=== PATIENT | male | born 1965 | race Caucasian/White ===

== ENCOUNTER 2023-12-28 19:33 | Emergency (ER) | payer BC, SELFPAY ==
[2023-12-28 19:41] VITALS: BP 130/84
--- NOTE | 2023-12-28 22:14 | ED.GENMED ---
History of Present Illness
General
Chief Complaint: Heart Rate Problem
Time Seen by Provider: 12/28/23 21:55
Travel History
Have you had any contact with someone who has COVID-19?: No
Do you have any symptoms of coronavirus? Fever > 100 degrees, chills, cough, shortness of breath, sore throat, loss of taste or smell, muscle aches, or headache?: No
History of Present Illness
History of Present Illness:
58-year-old male with history of hyperlipidemia and [id number] diabetes presents the emergency department due to an abnormal EKG at his primary care physician's office. He states he went for a routine visit and during cardiac
auscultation his primary doctor was concerned for cardiac arrhythmia. Obtained an EKG and then referred him to the emergency department due to new onset atrial fibrillation. Patient denies any complaints, specifically denies chest pain or
shortness of breath
Past History
Past History
ED Past Medical History: Hypercholesterolemia
ED Past Surgical History: Orthopedic, Tonsilectomy and Other (Recent hemorrhoidectomy 3 days ago)
Social History
Tobacco: Former smoker
Alcohol: Occasional
Personal:
Living: with family
Employment: Employed
Family History
Family History: Other (Noncontributory); Negative Diabetes, Hypertension, Early CAD, Asthma or Cancer
Review of Systems
Review of Systems
Allergies reviewed?: Yes
All Other Systems: ROS reviewed and negative except as documented in HPI and ROS
Phy Exam
Physical Exam
Physical Exam:
GEN: Well appearing, NAD, WDWN
HEENT: Oral mucosa moist, no scleral icterus
Cardiac: Regular rate and rhythm, no murmurs
Lung: No respiratory distress, no tachypnea
MSK: No gross deformity or injuries
Skin: Good color, no pallor or jaundice, no rashes
Neuro: AO x3, moves all extremities freely
Psych: Calm, cooperative
Course
Orders/Labs/Results
Orders:
Orders
12/28/23 19:48
EKG [Electrocardiogram (*1)] Urgent
Reason for Study: Atrial Fibrillation
EKG- Treatment ONCE
Vital Signs
Initial and Last Documented VS:
Initial Vital Signs
Temp Pulse Resp BP Pulse Ox
98.1 F 83 18 130/84 97
12/28/23 19:41 12/28/23 19:41 12/28/23 19:41 12/28/23 19:41 12/28/23 19:41
Last Documented Vital Signs
Temp Pulse Resp BP Pulse Ox
98.1 F 88 16 125/92 95
12/28/23 19:41 12/28/23 22:15 12/28/23 22:15 12/28/23 22:15 12/28/23 22:15
MDM/Problems Addressed
MDM/Problems Addressed:
I personally reviewed the EKG provided by the patient from his visit earlier today and this clearly shows a sinus rhythm with premature atrial contractions as there are visible P waves throughout. This is congruent with the EKG we obtained in the
emergency department. Patient is reassured and discharged
Comment
Comment:
EKG independently interpreted by me shows normal sinus rhythm at a rate of 80 with frequent premature atrial contractions, no ST changes concerning for ischemia
*Critical Care Note
Total Time (30-74mins, 75-104mins- exclusive of procedures): Not Applicable
ED Attending Note
-
Portions of this chart may have been created with voice recognition software.� Occasional wrong word or��sound alike� substitutions may have occurred due to the inherent limitations of voice recognition software.
Discharge Plan
Departure
Patient Disposition: Home (Routine Discharge)
Date of Disposition: 12/28/23
Time of Disposition: 22:14
Patient with high blood pressure during this ER visit?: No
Discharge Problem:
Atrial contractions, premature
Instructions: Ventricular premature beats
Prescriptions:
No Action
simvastatin 20 MG tablet
20 mg PO QPM
oxycodone-acetaminophen [Percocet] 1 EACH tablet
1 ea PO Q4HPRN PRN (Reason: pain)
Referrals:
Matt Talavera, DO [Family Provider] -
Activity Restrictions/Additional Instructions:
Your EKG showed premature atrial contractions and definitively not atrial fibrillation.
Interventions
Interventions:
*Risk Screen - Suicide Last Done: 12/28/23 19:41
*General Assessment Last Done: 12/28/23 19:41
*Neglect/Abuse Screening Last Done: 12/28/23 19:41
ED- Fall Risk Assessment Last Done: 12/28/23 22:15
*ED COVID-19 Vaccine History Last Done: 12/28/23 19:41
*Nursing Disposition Last Done: 12/28/23 22:25
ED- Cardiac Assessment Last Done: 12/28/23 22:15
ED- Pulmonary Assessment Last Done: 12/28/23 22:15
Discharge Date and Time
Discharge Date/Time: 12/28/23 22:25
[2023-12-28 22:15] VITALS: BP 125/92
== END 2023-12-28 22:25 | disposition home or self-care (01) ==
LOC: EMR 19:33
PROVIDERS: EMERGENCY PHYSICIAN Emergency Medicine; FAMILY PHYSICIAN Student in an Organized Health Care Education/Training Program
DX: I49.1 Atrial premature depolarization (principal); Z87.891 Personal history of nicotine dependence
CPT/HCPCS: 99283; 93005